=== PATIENT | male | born 1985 | race Hispanic/Latino ===

== ENCOUNTER 2024-03-02 17:03 | Emergency (ER) | payer SELFPAY ==
[~2024-03-02] VITALS: Ht 157.5 cm; Wt 75.7 kg
[2024-03-02 17:31] VITALS: TEMP 98.4
[2024-03-02] MEDS: KETOROLAC TROMETHAMINE 30 MG/ML VIAL IV STA (18:31)
[2024-03-02] MEDS: DIPHENHYDRAMINE HCL INJ 50 MG/ML VIAL IV STA (18:33)
[2024-03-02] MEDS: METOCLOPRAMIDE HCL 10 MG/2ML VIAL IV ONE (18:33)
[2024-03-02] MEDS: SODIUM CHLORIDE 0.9% 1000ML 1,000 ML IV SCH (18:34)
[2024-03-02 19:33] VITALS: PULSE 58; RESP 16
[2024-03-02 20:53] VITALS: BP 146/92; PULSE 62; RESP 16; O2SAT 100
== END 2024-03-02 20:54 | disposition home or self-care (01) ==
LOC: ER 18:15
DX: R51.9 Headache, unspecified (principal); H53.8 Other visual disturbances; I10 Essential (primary) hypertension
CPT/HCPCS: 70450; 99283; J1200; J1885; J2765; J7030